=== PATIENT | female | born 1995 | race Caucasian/White ===

== ENCOUNTER 2017-06-15 16:07 | Inpatient (IN) | payer BC, OTHER ==
[~2017-06-15] VITALS: Ht 160 cm; Wt 49.9 kg
[2017-06-15] MEDS ORDERED: ONDANSETRON ODT 4 MG TAB.RAPDIS SL PRN (17:45)
[2017-06-15] MEDS ORDERED: IBUPROFEN 600 MG TABLET PO PRN (17:45)
[2017-06-15] MEDS ORDERED: MIRALAX 17 GM POWD.PACK PO PRN (17:45)
[2017-06-15] MEDS ORDERED: DICYCLOMINE HCL 20 MG TABLET PO PRN (17:45)
[2017-06-15] MEDS ORDERED: MAGNESIUM HYDROXIDE 30 ML LIQUID UDC PO PRN (17:45)
[2017-06-15] MEDS ORDERED: MAG HYDROX/AL HYDROX/SIMETH 30 ML LIQUID UDC PO PRN (17:45)
[2017-06-15] MEDS ORDERED: diphenhydrAMINE 50 MG CAPSULE PO PRN (17:45)
[2017-06-15] MEDS ORDERED: METHOCARBAMOL 750 MG TABLET PO PRN (17:45)
[2017-06-15] MEDS ORDERED: BUPRENORPHINE HCL 2 MG TAB.SUBL SL PRN (17:45)
[2017-06-15] MEDS ORDERED: ONDANSETRON 4 MG/2 ML VIAL IM PRN (17:45)
[2017-06-15] MEDS ORDERED: LORAZEPAM 2 MG/1 ML VIAL IM PRN (17:45)
[2017-06-15] MEDS ORDERED: LOPERAMIDE HCL 2 MG CAPSULE PO PRN ×2 (17:45)
[2017-06-15] MEDS ORDERED: ACETAMINOPHEN 325 MG TABLET PO PRN (17:45)
[2017-06-15] MEDS ORDERED: LORAZEPAM 1 MG TABLET PO PRN (17:45)
[2017-06-15] MEDS ORDERED: CLONIDINE HCL 0.1 MG TABLET PO PRN (17:45)
--- NOTE | 2017-06-15 17:54 | NUR ---
Contraband: 1 "bong" and 3 pipes with meth salts destroyed in biohazard waste. Witnessed by myself and Kamila Son RN.
--- NOTE | 2017-06-15 18:15 | NUR ---
PRE-ADMISSION Pt is a 21 yr old female, AA&Ox to person, place and situation. Pt is presenting herself to [facility] for heroin, ETOH, and Meth use. Pt states she also occasionally eats marijuana edibles. Pt is noted intoxicated and is unable to stay still. Pt is observed with enlarged pupils and speech is pressured. Pt is also having difficulty thinking clearly. Pt states she feels nauseous and has vomited x1 prior to intake. VS BP 135/99, P 148-152, R 24, O2 100%. Dr. Vincent was made aware of increase HR. Per Dr. Vincent, EKG to be ordered once on the unit. Will continue to monitor once pt arrives on the unit.
--- NOTE | 2017-06-15 18:20 | NUR ---
Contraband: 1 bag of meth salts was found in pt's belongs. Contraband was properly disposed and witnessed by Kamila SIMON
[2017-06-15 18:25] VITALS: BP 135/99
--- NOTE | 2017-06-15 18:30 | NUR ---
BODY CHECK Body check was complete. Skin is intact. Pt weighs 110lbs and is 5'3".
[2017-06-15 18:38] LABS: BASOPHILS # (AUTO) 0.1 K/uL (0.0-8.0); BASOPHILS % (AUTO) 0.7 % (0.0-2.0); EOSINOPHILS # (AUTO) 0.1 K/uL (0.0-0.7); EOSINOPHILS % (AUTO) 0.5 % (0.0-7.0); HEMATOCRIT 48.2 % (31.2-41.9); HEMOGLOBIN 16.3 g/dL (10.9-14.3); LYMPHOCYTES # (AUTO) 3.5 K/uL (20.0-40.0); MEAN CORPUSCULAR HEMOGLOBIN 29.8 uug (24.7-32.8); MEAN CORPUSCULAR HGB CONC 34 g/dL (32.3-35.6); MEAN CORPUSCULAR VOLUME 87.8 fL (75.5-95.3); MONOCYTES # (AUTO) 0.5 K/uL (2.0-10.0); MONOCYTES % (AUTO) 4.5 % (0.0-11.0); NEUTROPHILS # (AUTO) 6.9 K/uL (1.8-8.9); NEUTROPHILS % (AUTO) 62.3 % (38.5-71.5); PLATELET COUNT (AUTO) 327 K/uL (179-408); RED BLOOD CELL COUNT(AUTO) 5.49 MIL/uL (3.63-4.92)
[2017-06-15 18:50] LABS: BILIRUBIN,TOTAL 0.6 mg/dL (0.2-1.0); CREATININE 0.9 mg/dL (0.6-1.3); MAGNESIUM 2.4 mg/dL (1.8-2.4); POTASSIUM 3.5 mmol/L (3.5-5.1)
[2017-06-15 18:59] LABS: THYROID STIMULATING HORMONE 0.567 mIU/mL (0.358-3.740)
[2017-06-15] MEDS ORDERED: LORAZEPAM 1 MG TABLET PO ONE (19:45)
[2017-06-15 20:00] VITALS: BP 141/91
--- NOTE | 2017-06-15 20:24 | NUR ---
ONE TIME ATIVAN ADMINISTRATION DR. GILL MADE AN ORDER TO GIVEN ONE TIME ATIVAN AND AWARE OF PATIENT STILL UNABLE TO PROVIDE UA AND TO GIVE SCHEDULED MEDICATION
--- NOTE | 2017-06-15 21:30 | NUR ---
ADMISSION NOTE PATIENT CAME IN THE UNIT AT 1825. PATIENT IS A 21 YEAR OLD FEMALE WHO PRESENTS TO [facility] FOR SUPERVISED WITHDRAWAL FROM ETOH/OPIATE/CRYSTAL METH. PATIENT IS 5'3 AND 110 LBS. SKIN INTACT. NO SKIN BREAKDOWN. LUNGS CLEAR AND ABDOMEN SOFT AND NON-DISTENDED. BOWEL SOUNDS HYPOACTIVE ON LOWER QUADRANT . LAST BOWEL MOVEMENT YESTERDAY. NO ABDOMINAL PAIN. PATIENT REPORTS PMH OF MAJOR DEPRESSION, ANXIETY, BIPOLAR D/O, BORDERLINE PERSONALITY D/O AND SUICIDE ATTEMPT (APRIL 2016). NO SEIZURE HISTORY. DENIES SI AND HI. REQUESTED TO BE FULL CODE AND ON REGULAR DIET. PATIENT SMOKES 1 PACK DAILY. PATIENT IS ALLERGIC TO RESPERIDONE. HER PCP IS DR. PAULETTE ALEXANDER. 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 SHE STATES SHE IS HERE BECAUSE "I HAVE TO GET SOBER". " I CANNOT DO IT ON MY OWN ". PATIENT'S DRUG OF CHOICE ARE: 1.ETOH (VODKA)- STARTED DRINKING AT AGE 11. SHE DRINKS 1 BOTTLE DAILY FOR 6 MONTHS. LAST DRINK WAS 3 BOTTLES OF (24 OZ EACH) PRIOR TO ADMISSION. 2.HEROIN (SMOKE)-STARTED USING 4 MONTHS AGO . SHE SMOKES 1-3 GRAMS DAILY FOR 4 MONTHS. LAST USE WAS 0.2 GRAMS PRIOR TO ADMISSION 3.CRYSTAL METH (SMOKE/SNORT)- STARTED USING AT AGE 17. SHE TAKES $20 WORTH DAILY FOR 8 MONTHS. LAST USE WAS 1/2 GRAM PRIOR TO ADMISSION 4.MARIJUANA (ORALLY)- SHE STARTED USING AT AGE 13. SHE EATS (EDIBLE ) 240 MG OCCASIONALLY FOR 6 MONTHS. LAST USE WAS 240 MG TSH PRIOR TO ADMISSION. PATIENT'S LONGEST PERIOD OF SOBRIETY WAS 6-7 MONTHS ON APRIL 23 AND SHE RELAPSED 2016. PATIENT STATES SHE RELAPSED DUE TO HER DEPRESSION. PATIENT MODERATELY INTOXICATED. PATIENT PRESENTED WITH ANXIETY 8/10, PUPILS FULLY DILATED, FIDGETY, BILATERAL HAND TREMORS, FLUSHED FACE, SWEATING, MYALGIA, RESTLESSNESS, IRRITABILITY AND AGITATION. COWS 24 AND CIWA 20. PATIENT UNABLE TO PROVIDE UA AT THIS TIME. PATIENT WAS SEEN BY DR. GILL AT INTAKE. PATIENT ORIENTED TO SURROUNDING AND HOW TO USE CALL LIGHT. UNIT AND SMOKING POLICIES PROVIDED. Q4 HOURS VS. PATIENT DID NOT BROUGHT HOME MEDICATION BUT VERBALIZES TAKING SEROQUEL, LITHIUM AND GABAPENTIN WHICH SHE'S NOT TAKING FOR A LONG TIME. SAFETY MEASURES IN PLACE. CALL LIGHT IN REACH. WILL CONTINUE TO MONITOR
[2017-06-15] MEDS: GABAPENTIN 300 MG CAPSULE PO SCH (21:33)
--- NOTE | 2017-06-15 21:33 | NUR ---
PRN ZOFRAN AND ROBAXIN ADMINISTRATION PATIENT C/O NAUSEA BUT NO EMESIS AND MUSCLE ACHES . WILL MONITOR FOR EFFECTIVENESS
[2017-06-16] VITALS (7 sets, daily range): BP systolic 95–158; BP diastolic 56–95
[2017-06-16] MEDS: LORAZEPAM 1 MG TABLET PO PRN ×4 (00:39→19:44)
--- NOTE | 2017-06-16 00:39 | NUR ---
PRN ATIVAN ADMINISTRATION PATIENT MODERATELY ANXIOUS, PACING, FIDGETY, TREMULOUS, RESTLESS AND AGITATED. CIWA 15. WILL MONITOR FOR EFFECTIVENESS
--- NOTE | 2017-06-16 01:39 | NUR ---
PRN ATIVAN RE-ASSESSMENT PATIENT STILL ANXIOUS, FIDGETY AND RESTLESS. RELAXATION TECHNIQUE PROVIDED. CIWA 11.
--- NOTE | 2017-06-16 02:56 | NUR ---
PRN ATIVAN ADMINISTRATION PATIENT MODERATELY ANXIOUS, PACING, FIDGETY, TREMULOUS, RESTLESS AND AGITATED AND UNABLE TO SLEEP. CIWA 14. WILL MONITOR FOR EFFECTIVENESS
--- NOTE | 2017-06-16 03:56 | NUR ---
PRN ATIVAN RE-ASSESSMENT PATIENT STILL ANXIOUS, FIDGETY, RESTLESS , TREMULOUS AND NOTED WITH AUDITORY AND VISUAL MILD SENSITIVITY. CIWA 12 . WILL CONTINUE TO MONITOR
[2017-06-16 04:14] LABS: *URINE HCG, QUAL NEGATIVE (NEGATIVE)
[2017-06-16 04:22] LABS: *AMPHETAMINE, URINE POSITIVE (NEGATIVE); *BARBITURATE, URINE NEGATIVE (NEGATIVE); *CANNABINOID, URINE POSITIVE (NEGATIVE); *COCCAINE, URINE NEGATIVE (NEGATIVE); *OPIATE, URINE POSITIVE (NEGATIVE); *PHENCYCLIDINE SCREEN,URINE NEGATIVE (NEGATIVE)
[2017-06-16] MEDS ORDERED: GABA800T PO (05:37)
[2017-06-16] MEDS ORDERED: QUET200T3 PO (05:37)
[2017-06-16] MEDS ORDERED: LITH600C PO (05:37)
--- NOTE | 2017-06-16 06:04 | NUR ---
PRN ATIVAN ADMINISTRATION PATIENT NOTED WITH AUDITORY AND VISUAL HALLUCINATION. PATIENT WAS ANXIOUS AND RESTLESS. CIWA 17. PATIENT ON 1:1 FOR SAFETY . WILL MONITOR FOR EFFECTIVENESS.
--- NOTE | 2017-06-16 07:04 | NUR ---
END OF SHIFT NOTE/ATIVAN RE-ASSESSMENT ATIVAN WAS GIVEN AND CIWA 15 AFTER RE-ASSESSMENT. PATIENT DID NOT SLEEP DURING SHIFT. FLUID INTAKE OF 1,000 ML. VOIDED X 1 . NO BM. MONITORED PATIENT THROUGHOUT SHIFT. PATIENT WAS ON PUT 1:1 FOR FOR SAFETY DUE TO HAVING AUDITORY AND VISUAL HALLUCINATION DURING SHIFT. PATIENT WAS MODERATELY ANXIOUS, FIDGETY, RESTLESS , AGITATED AND IRRITABLE. PATIENT WAS GIVEN PRN ZOFRAN AND ROBAXIN. PATIENT WAS GIVEN PRN ATIVAN 2 MG X 4. LAST COWS 13 AND CIWA 15. SAFETY MEASURES IN PLACE. CALL LIGHT IN REACH. WILL CONTINUE TO MONITOR. CONTINUE ON 1:1 .
--- NOTE | 2017-06-16 07:45 | NUR ---
Start of shift note; Received report from night nurse. Patient is a 21 year old female admitted on 06/15/17 for ETOH/Heroin/Methamphetamine withdrawals. Patient appears anxious, restless, agitated, complaining of muscle aches, hallucinations reported per night nurse, slurred speech noted, frequent leg shifting noted , unable to sit still. Patient is awake , oriented to name. Patient is under 1:1 supervision for safety. Will notify psychiatrist regarding hallucinations and patient's current condition. All safety measures secured. Will continue to monitor patient.
[2017-06-16] MEDS ORDERED: OLANZAPINE 10 MG VIAL IM ONE ×3 (08:15→22:00)
--- NOTE | 2017-06-16 08:30 | NUR ---
Psychiatrist order; Psychiatrist was notified regarding patient's hallucinations and psychosis episodes. MD ordered Zyprexa 5mg IM one time order for psychosis. Medication administered on patient's right deltoid area. Patient is very anxious and restless unable to sit still. Patient's current vitals signs are as follows BP 159/86, HR 98, SPO2 95% on room air with respirations of 18. Will closely monitor patient. Patient remains on 1:1 supervision for safety.
--- NOTE | 2017-06-16 08:45 | NUR ---
Endorsement; Detailed report given to covering nurse. Patient is currently awake, oriented to name. Patient is having hallucinations and psychosis, Zyprexa 5mg IM given one time per psychiatrist order. Patient remains on 1:1 supervision for safety. Endorsed to covering nurse.
--- NOTE | 2017-06-16 08:46 | NUR ---
RECEIVED CARE Patient endorsement report received from primary nurse. All patient information discussed. Patient cont on 1:1 for hallucination and psychosis. Will cont to monitor closely. Safety measures in place.
[2017-06-16] MEDS ORDERED: HYDROXYZINE PAMOATE 25 MG CAPSULE PO PRN (09:00)
[2017-06-16] MEDS ORDERED: TUBERCULIN,PURIF.PROT.DERIV. 5 TU/0.1 ML TEST ID ONE (09:00)
[2017-06-16] MEDS: GABAPENTIN 300 MG CAPSULE PO SCH ×2 (10:26→20:35)
[2017-06-16] MEDS: BUPRENORPHINE HCL 2 MG TAB.SUBL SL SCH ×3 (10:27→20:35)
[2017-06-16] MEDS: LITHIUM CARBONATE 300 MG CAPSULE PO SCH ×2 (12:12→17:00)
[2017-06-16] MEDS: QUETIAPINE FUMARATE 25 MG TABLET PO PRN ×2 (12:12→21:10)
--- NOTE | 2017-06-16 12:12 | NUR ---
PRN SEROQUEL Patient was having visual and auditory hallucination and psychosis. PRN Seroquel 50mg PO given as ordered. will cont to monitor and reassess.
[2017-06-16] MEDS ORDERED: HYDROXYZINE PAMOATE 25 MG CAPSULE PO ONE (12:30)
[2017-06-16] MEDS ORDERED: PROPRANOLOL HCL 20 MG TABLET PO ONE (12:30)
--- NOTE | 2017-06-16 12:45 | NUR ---
ONE TIME ORDER Patient's blood pressure noted 141/95, HR-121, and patient c/o of anxiety, agitation. MD notified and new one time order received to give Propranolol 20mg PO, Vistaril 25mg PO. Medication given as ordered.
--- NOTE | 2017-06-16 13:12 | NUR ---
SEROQUEL REASSESSMENT Patient noted sleeping in her room Seroquel was effective. Patient cont on 1:1 for safety.
--- NOTE | 2017-06-16 15:00 | NUR ---
SUBUTEX 4MG NON-ADMINISTERED Pt was unable to follow directions and take medication. Pt is experiencing active visual, auditory hallucinations. MD notified.
--- NOTE | 2017-06-16 15:10 | NUR ---
One Time Zyprexa Pt has not slept yet. She is confused and disoriented with incoherent sentences. Pt startles easily and grabs for items in the air. She attempts to get out of the bed, requests her keys, and states "I need to go move my car". B/P 140/90 and HR 90. She is observed to be twitching and unable to fall asleep. Pt has not slept since she was admitted. Contacted Psychiatrist with orders received for [place].
--- NOTE | 2017-06-16 16:00 | NUR ---
CIWA and COWS was deferred at 1600 patient was sleeping, breathing normal no SOB noted.
--- NOTE | 2017-06-16 19:11 | NUR ---
END OF SHIFT NOTE Gave report to night nurse, patient admitted for ETOH, Heroin, Crystal meth withdrawal and patient cont on 5 days Subutex taper tolerating well. During shift patient received one time order of Zyprexa 5mg IM and one time Zyprexa 10mg IM, one time Vistaril 25mg PO and one time Propranolol 20mg PO for psychosis noted to be effective. Subutex 4mg SL and lithium was held. Patient was given PRN Seroquel. Patient noted resting breathing normal in her room. Patient cont on 1:1 for safety. Vital signs WNL. All safety measures in place. Patient endorsed to night nurse in stable condition.
--- NOTE | 2017-06-16 19:30 | NUR ---
START OF SHIFT NOTE RECEIVED REPORT FROM DAY SHIFT NURSE. PATIENT IS A 21 YEAR OLD FEMALE ADMITTED FOR ETOH/OPIATE/CRYSTAL METH WITHDRAWAL. PATIENT IS ON SUBUTEX TAPER. CONTINUE ON 1:1 FOR SAFETY . PATIENT HAD AN EPISODE OF AUDITORY/VISUAL HALLUCINATION AND PSYCHOSIS EPISODES DURING THE DAY. PATIENT WAS GIVEN PRN ZYPREXA X 2. SEROQUEL , PROPRANOLOL FOR HR 121 AND VISTARIL . SUBUTEX WAS HELD DUE TO PATIENT UNABLE TO FOLLOW INSTRUCTION IN TAKING THE MEDICATION. RECEIVED PATIENT IN THE ROOM WITH FEMALE ORAL AND MAXILLOFACIAL PATHOLOGIST. PATIENT PRESENTED WITH ANXIETY , RESTLESSNESS, NOTED WITH AUDITORY/VISUAL HALLUCINATIONS AND PSYCHOSIS EPISODES , HYPERVERBAL, FIDGETY , IRRITABILITY AND AGITATION. VS BP- 145/88 P-69 T-98.1 R-18 sPO2 AT 100% IN RA. REALITY ORIENTATION PROVIDED. SAFETY MEASURES IN PLACE. CALL LIGHT IN REACH. WILL CONTINUE TO MONITOR
--- NOTE | 2017-06-16 19:44 | NUR ---
PRN ATIVAN ADMINISTRATION PATIENT NOTED WITH ANXIETY , RESTLESSNESS, NOTED WITH AUDITORY/VISUAL HALLUCINATIONS AND PSYCHOSIS EPISODES , HYPERVERBAL, FIDGETY , UNABLE TO SIT STILL , IRRITABILITY AND AGITATION. VS BP- 145/88 P-69 T-98.1 R-18 sPO2 AT 100% IN RA
[2017-06-16] MEDS: QUETIAPINE FUMARATE 200 MG TABLET PO SCH (20:35)
[2017-06-16] MEDS: HYDROXYZINE PAMOATE 25 MG CAPSULE PO PRN (21:09)
--- NOTE | 2017-06-16 21:09 | NUR ---
PRN SEROQUEL AND VISTARIL ADMINISTRATION PATIENT ANXIOUS, PACING AROUND THE ROOM, RESTLESS, HAVING AUDITORY AND VISUAL HALLUCINATIONS, FIDGETY AND NOTED GETTING IN AND OUT OF BED
--- NOTE | 2017-06-16 22:09 | NUR ---
SH[place] SEROQUEL AND VISTARIL ADMINISTRATION PATIENT STILL SEVERELY ANXIOUS, IRRITATED, AGITATED AND RESTLESS. SEROQUEL AND VISTARIL INEFFECTIVE . WILL CONTINUE TO MONITOR Addendum: 06/17/17 at 0606 by VIPIN AMIN LVN ERROR: RE-ASSESSMENT
--- NOTE | 2017-06-16 22:13 | NUR ---
PRN ZYPREXA IM ADMINISTRATION PATIENT WITH SEVERE ANXIETY, NOTED RESTLESS, IRRITABLE, UNABLE TO STILL , AGITATED , HAVING AUDITORY AND VISUAL HALLUCINATIONS AND PSYCHOSIS EPISODES " PATIENT STATES THAT THE DOOR IS MOVING AND THERE'S WATER FALLING. PATIENT NOTED REMOVING PILLOWS AND BLANKETS FROM THE BED AND PUTTING IT EVERYWHERE. PATIENT ALSO NOTED CRYING AND YELLING. Addendum: 06/17/17 at 0602 by VIPIN AMIN LVN ERROR: ONE TIME ZYPREXA IM GIVEN NOT PRN Addendum: 06/17/17 at 0619 by VIPIN AMIN LVN VS BP-116/89 P-120 T-98.0 R-19. SpO2 AT 99% IN RA
--- NOTE | 2017-06-16 22:43 | NUR ---
ONE TIME ZYPREXA IM RE-ASSESSMENT CIWA DEFERRED. PATIENT ASLEEP AT THIS TIME. ZYPREXA EFFECTIVE. RESPIRATION EVEN AND UNLABORED. SpO2 AT 96 % IN RA 79
--- NOTE | 2017-06-17 | NUR ---
COWS AND CIWA DEFERRED UNABLE TO ASSESS VS, PATIENT ACUTELY PSYCHOTIC. PATIENT MOVING HER ARMS AWAY. SpO2 AND PULSE MEASURED BY PULSE OXIMETER. RESPIRATION EVEN AND UNLABORED. SpO2 96% IN RA AND 61
--- NOTE | 2017-06-17 04:00 | NUR ---
COWS AND CIWA DEFERRED UNABLE TO ASSESS VS, PATIENT ACUTELY PSYCHOTIC. PATIENT MOVING HER ARMS AWAY. SpO2 AND PULSE MEASURED BY PULSE OXIMETER. PATIENT WITH EYES CLOSED. RESPIRATION EVEN AND UNLABORED. SpO2 96% IN RA AND 60
--- NOTE | 2017-06-17 07:06 | NUR ---
END OF SHIFT NOTE PATIENT SLEPT 7 HOURS. FLUID INTAKE OF 355 ML. VOIDED X 2 NO BM. MONITORED PATIENT THROUGHOUT SHIFT. PATIENT IS ON 1:1 FOR SAFETY. PATIENT PRESENTED WITH ANXIETY, RESTLESSNESS, NOTED WITH AUDITORY/VISUAL HALLUCINATIONS AND PSYCHOSIS EPISODES , HYPERVERBAL, FIDGETY , UNABLE TO SIT STILL , IRRITABILITY AND AGITATION DURING SHIFT. REALITY ORIENTATION PROVIDED. PRN ATIVAN GIVEN AT 1943, INEFFECTIVE. PRN SEROQUEL AND VISTARIL GIVEN AT 2108 , INEFFECTIVE. AT 2212, ONE TIME ZYPREXA IM GIVEN , EFFECTIVE. CONTINUOS REALITY ORIENTATION PROVIDED. SAFETY MEASURES IN PLACE. CALL LIGHT IN REACH. WILL CONTINUE TO MONITOR. LAST COWS 13 AND CI.
--- NOTE | 2017-06-17 07:30 | NUR ---
START OF SHIFT PATIENT IS A 21 YR OLD FEMALE ADMITTED TO [facility] ON 06/15/17 FOR A MEDICALLY SUPERVISED WITHDRAWAL FROM ALCOHOL. OPIATES ( HEROIN ) AND METH. PATIENT IS AWAKE IN ROOM AT THIS TIME REQUESTING TO TAKE A SHOWER, PATIENT IS WITH A 1:1 FOR SAFETY MEASURES. PATIENT APPEARS ALERT WITH STEADY GAIT BUT GETS OVERWHELMED WHEN ASKED SIMPLE QUESTIONS. PRN MEDS GIVEN ON PM SHIFT : ATIVAN 2MG PO, SEROQUEL PO, VISTARIL PO AND ZYPREXA 10MG IM. PATIENT SLEPT FOR 7 HOURS AND LAST COWS 13 AND CIWA 19 @ 10PM. WILL CONTINUE TO FOLLOW MD PLAN OF CARE. Addendum: 06/17/17 at 0745 by JOANNA LOZANO RN SHE IS ON A 5 DAY SUBUTEX TAPER WITH PRN ATIVAN STARTED ON 06/16/17
[2017-06-17 08:00] VITALS: BP 131/71
[2017-06-17 08:07] LABS: HEPATITIS B SURFACE AG Negative (Negative)
[2017-06-17] MEDS: LITHIUM CARBONATE 300 MG CAPSULE PO SCH ×3 (08:20→17:14)
[2017-06-17] MEDS: GABAPENTIN 300 MG CAPSULE PO SCH ×2 (08:20→14:17)
[2017-06-17] MEDS: QUETIAPINE FUMARATE 25 MG TABLET PO PRN ×2 (08:20→14:17)
--- NOTE | 2017-06-17 08:20 | NUR ---
PRN SEROQUEL 50MG PO SEROQUEL GIVEN FOR C/O INABILITY TO SLEEP WILL REASSESS
[2017-06-17] MEDS ORDERED: BUPRENORPHINE HCL 2 MG TAB.SUBL SL SCH (09:00)
--- NOTE | 2017-06-17 09:20 | NUR ---
PRN REASSESS PATIENT IS RESTING IN BED WITH EYES CLOSED, WILL CONTINUE TO MONITOR
[2017-06-17] MEDS ORDERED: LORAZEPAM 1 MG TABLET PO ONE (11:00)
[2017-06-17 13:00] VITALS: BP 131/80
[2017-06-17] MEDS: LORAZEPAM 1 MG TABLET PO PRN ×4 (14:17→22:27)
[2017-06-17] MEDS: BUPRENORPHINE HCL 2 MG TAB.SUBL SL SCH ×2 (14:18→21:59)
--- NOTE | 2017-06-17 14:20 | NUR ---
PRN ATIVAN/SEROQUEL ATIVAN 2MG PO GIVEN FOR CIWA 14 AND C/O HIGH ANXIETY, HR 121 SEROQUEL 50MG PO GIVEN FOR R/O INABILITY TO REST/SLEEP WILL CONTINUE TO MONITOR
--- NOTE | 2017-06-17 15:20 | NUR ---
PRN REASSESS PATIENT IS LESS ANXIOUS CIWA NOW 10 / HR 90 PT STILL UNABLE TO FALL ASLEEP BUT IS ABLE TO REST IN BED WITH EYES CLOSED. WILL CONTINUE TO MONITOR
--- NOTE | 2017-06-17 16:34 | NUR ---
ERROR ON eMAR 2MG ATIVAN PO GIVEN @ 1420 NOT 1MG
[2017-06-17 17:00] VITALS: BP 139/81
[2017-06-17] MEDS: HYDROXYZINE PAMOATE 25 MG CAPSULE PO PRN (17:14)
--- NOTE | 2017-06-17 17:15 | NUR ---
PRN VISTARIL VISTARIL 50MG PO GIVEN FOR C/O INCREASED ANXIETY, HR 115 WILL REASSESS
--- NOTE | 2017-06-17 18:15 | NUR ---
PRN REASSESS PATIENT IS STILL ANXIOUS AFTER VISTARIL 50MG PO HR IS 140, CIWA 15, WILL GIVE ATIVAN 2 MG PO
--- NOTE | 2017-06-17 18:25 | NUR ---
PRN ATIVAN 2MG PO ATIVAN 2MG PO GIVEN FOR CIWA 15 AND HR 140, PT STATES SHE IS STILL HAVING HALLUCINATIONS BUT DOESN'T WANT TO TELL US WHEN SHE DOES, EXPLAINED TO PT THAT IN ORDER TO TREAT AND MEDICATE HER PROPERLY SHE NEEDS TO LET US KNOW, SHE STATES UNDERSTANDING. WILL REASSESS
--- NOTE | 2017-06-17 18:51 | NUR ---
END OF SHIFT : PATIENT IS A 21 YR OLD FEMALE ADMITTED TO [facility] ON 06/15/17 FOR A MEDICALLY SUPERVISED DETOX FROM ALCOHOL, HEROIN, CRYSTAL METH AND MARIJUANA. SHE IS ON A 5 DAY SUBUTEX TAPER WITH PRN ATIVAN STARTED ON 06/16/17 AND THIS IS DAY 2. PATIENT HAS BEEN EXPERIENCING VISUAL AND AUDITORY HALLUCINATION SINCE ADMISSION , TODAY THEY HAVE BEEN LESS SEVERE BUT SHE STATES SHE IS STILL HAVING THEM BUT JUST DIDN'T WANT TO TELL US, SHE HAS A HARD TIME SLEEPING. PRN MEDS GIVEN ON THIS SHIFT : SEROQUEL 50MG PO X2, ATIVAN 2MG PO X2 AND VISTARIL 50MG PO. PATIENT IS BIPOLAR AND PSYCHIATRIST HAS STARTED HER ON LITHIUM 300MG PO TID ( FOR BIPOLAR DISORDER) WHICH SHE WAS NON COMPLIANT BEFORE COMING TO DETOX. PATIENT TOOK A SHOWER THIS AM BUT REMAINS ON A 1:1 FOR SAFETY . PATIENT GETS EASILY OVERWHELMED AND HAS LOOSE THOUGHTS AND FLIGHT OF IDEAS, HER MOOD IS LABILE, SHE IS HIGHLY ANXIOUS , RESTLESS AND TACHYCARDIC. PATIENT HAD A FLUID INTAKE OF 1100 ML, 1VOID AND 0 BM. LAST COWS 10@ 1700 AND CIWA 15 @ 1830. CONTINUE TO FOLLOW MD PLAN OF CARE. ENDORSED TO NIGHT NURSE.
--- NOTE | 2017-06-17 19:20 | NUR ---
START OF SHIFT Pt is a 21 y/o female admitted on 06/15/17 for ETOH, opiate and meth withdrawal. Pt is on a 5 day Subutex taper, tolerating well. Pt had PRN Seroquel 50 mg x 2, Ativan 2 mg x 2 and Vistaril and last COWS 10 and CIWA 15 during day shift. Ativan 2 mg to be reassessed at 1925. Pt has hx of AV hallucinations. Pt is on a 1:1 for safety. Upon assessment pt laying in bed with eyes closed. Upon awakening pt A&O x 4 and presents with anxiety, difficulty concentrating, poor memory recall, difficulty thinking clearly, auditory and visual disturbances, agitation, depressed affect, disheveled appearance, unkempt room, slumped posture, fatigue, sense of panic, occasionally tearful and is isolative. Medications due. Safety measures in place. Call light within reach. Will continue to monitor.
--- NOTE | 2017-06-17 19:25 | NUR ---
PRN ATIVAN 2 MG REASSESSMENT Pt laying in bed with eyes closed, medication noted effective. Respirations even and unlabored. Safety measures in place. Call light within reach. Will continue to monitor.
[2017-06-17 20:00] VITALS: BP 112/66
[2017-06-17] MEDS ORDERED: GABAPENTIN 300 MG CAPSULE PO SCH (21:00)
[2017-06-17] MEDS: CLONIDINE HCL 0.1 MG TABLET PO SCH (22:00)
[2017-06-17] MEDS: QUETIAPINE FUMARATE 200 MG TABLET PO SCH (22:00)
--- NOTE | 2017-06-17 22:27 | NUR ---
PRN ATIVAN 2 MG ADMINISTRATION CIWA 15, pt presents with auditory and visual disturbances and anxiety. Safety measures in place. 1:1 sitter at bedside. Will continue to monitor.
--- NOTE | 2017-06-17 23:27 | NUR ---
PRN ATIVAN 2 MG REASSESSMENT Pt laying in bed with eyes closed, medication noted effective. Respirations even and unlabored. Safety measures in place. 1:1 sitter at bedside. Will continue to monitor.
--- NOTE | 2017-06-18 | NUR ---
COWS/CIWA DEFERRED AND VITALS REFUSED Pt laying in bed with eyes closed, COWS/CIWA deferred, to be assessed when pt is awake per orders. Vitals refused. Respirations even and unlabored. Safety measures in place. Call light within reach. Will continue to monitor.
--- NOTE | 2017-06-18 06:59 | NUR ---
START OF SHIFT Pt is a 21 y/o female admitted on 06/15/17 for ETOH, opiate and meth withdrawal. Pt is on a 5 day Subutex taper, tolerating well. Pt is on a 1:1 for safety. Pt presented with anxiety, difficulty concentrating, poor memory recall, difficulty thinking clearly, auditory and visual disturbances, agitation, depressed affect, disheveled appearance, unkempt room, slumped posture, fatigue, sense of panic, occasionally tearful and is isolative. Scheduled medications and PRN Ativan 2 mg administered, effective in S/S of withdrawal as verbalized by pt. Last COWS 8 and CIWA 15. Pt slept 9 hours. Intake 800 ml, void x 1, stool x 0. Safety measures in place. 1:1 sitter at bedside. Pts needs have been met. Endorsed to day shift nurse. Addendum: 06/18/17 at 0700 by DIANE BRODY RN END OF SHIFT, NOT START OF SHIFT
--- NOTE | 2017-06-18 08:00 | NUR ---
Start of Shift Note Pt is a 21 y/o female admitted on 06/15/17 for ETOH, opiate and meth withdrawal. Pt is on a 5 day Subutex taper, and has orders for PRN Ativan. Pt is on a 1:1 for safety. Pt. has been noted experiencing visual and auditory hallucinations in previous shifts. Received pt. in bed with eyes closed. Respirations even and unlabored. Pt. arousable to name and touch, but goes back to sleep as soon as awoken. Last COWS 8 and CIWA 15. Pt slept 9 hours. Safety measures in place. 1:1 sitter at bedside. Bed position low and bedside rails padded. Pt. needs met, and will continue to monitor behavior for safety.
[2017-06-18 08:55] VITALS: BP 104/66
[2017-06-18] MEDS: LITHIUM CARBONATE 300 MG CAPSULE PO SCH ×3 (09:54→16:11)
[2017-06-18] MEDS: CLONIDINE HCL 0.1 MG TABLET PO SCH (09:54)
[2017-06-18] MEDS: GABAPENTIN 300 MG CAPSULE PO SCH ×3 (09:54→21:12)
[2017-06-18] MEDS: BUPRENORPHINE HCL 2 MG TAB.SUBL SL SCH ×3 (09:54→21:12)
--- NOTE | 2017-06-18 10:00 | NUR ---
Pt. awake at this time. Upon approach pt. pleasant with a flat affect. Pt. appears restless, anxious, with poor short term memory. At this time pt. compliant with medication regiment. Pt. education provided on plan of care and pt. ask questions and verbalized understanding. Pt. concerned with work and school and her concerns were made known to case management. Pt. continues to be on a 1:1 for safety. Will continue to monitor pt.s behavior for safety.
[2017-06-18 12:12] VITALS: BP 118/70
[2017-06-18] MEDS: HYDROXYZINE PAMOATE 25 MG CAPSULE PO PRN (12:24)
[2017-06-18] MEDS: LORAZEPAM 1 MG TABLET PO PRN (12:24)
--- NOTE | 2017-06-18 12:24 | NUR ---
PRN Ativan 1mg PO, Vistaril 50mg PO administered for CIWA 12, mb inability to stay still, irritability, agitation, and anxiety respectively. Call light within reach.
--- NOTE | 2017-06-18 13:24 | NUR ---
Reassess PRN Ativan 1mg, Vistaril 50mg, client is able to sit and maintain focus. She stated, "I feel irritable and just anxious." CIRO 7. Call light within reach.
[2017-06-18] MEDS: LORAZEPAM 1 MG TABLET PO SCH ×2 (15:53→21:12)
--- NOTE | 2017-06-18 15:58 | NUR ---
Pt. swallowed her dose of Subutex 2mg taper at 1558. MD called and a one time order of 2mg Subutex was given.
[2017-06-18] MEDS: BUPRENORPHINE HCL 2 MG TAB.SUBL SL ONE ×2 (15:59→16:11)
[2017-06-18 16:00] VITALS: BP 120/72
--- NOTE | 2017-06-18 19:12 | NUR ---
END of Shift Note Pt is a 21 y/o female admitted on 06/15/17 for ETOH, opiate and meth withdrawal. Pt is on a 5 day Subutex taper, and a modified 3 day ativan taper. Pt. has orders for PRN Ativan aswell. Pt is on a 1:1 for safety. Pt. has been noted experiencing visual and auditory hallucinations in previous shifts. Pt. is pleasant but guarded upon approach with a flat affect. Pt. denied visual hallucinations throughout shift but stated I never really stop hearing voices. Pt. compliant with treatment plan and medication regiment but can be irritable at times with mood swings. Respirations even and unlabored. Last COWS 14 and CIWA 14 at 1600. Safety measures in place. 1:1 sitter at bedside. Bed position low and bedside rails padded. Pt. needs met, and will endorse pt.s care to oncoming shift.
--- NOTE | 2017-06-18 19:15 | NUR ---
Start of Shift Note: Patient is a 21 y.o female admitted on 06/15/17 for medically supervised withdrawal from ETOH & Heroin. Patient is asleep in bed but easily arousable. Patient alert & oriented to name, place & situation. Pt has a flat affect, has anxious and depressed mood. She presented with complaints of sweating, chills, stuffy nose, dilated pupils, clammy/moist skin, restlessness & fine tremors. Patient is on a 5-day Subutex taper and started today on a 3-day Ativan taper and tolerating well. Last COWS 14 CIWA 14. She received PRN Ativan and Vistaril during day shift and was effective per report. She continues to be on a 1:1 sitter for safety. Vitals signs are closely monitored. Pt remained compliant with medications. Encourage pt to increase fluid intake for hydration. Educated patient of current plan of care for the night and medication regimen. Safety precaution in place. Bed locked in lowest position. Both side rails up. Call light within pt's reach. Will continue to monitor patient.
[2017-06-18 20:00] VITALS: BP_SYST 119; BP_DIAS 65; BP_DIAS 72
[2017-06-18] MEDS: QUETIAPINE FUMARATE 200 MG TABLET PO SCH (21:11)
[2017-06-18] MEDS: PROPRANOLOL HCL 20 MG TABLET PO SCH (21:11)
[2017-06-19] VITALS: BP 109/61
[2017-06-19 04:00] VITALS: BP 102/57
--- NOTE | 2017-06-19 07:22 | NUR ---
End of Shift Note: Patient remains stable at this time. Patient remains alert & oriented to name, place & situation. Continued on 1:1 for safety precaution. No episodes of confusion was noted. Continues her Subutex taper and tolerating well. Pt continues to present complaints of sweating, chills, stuffy nose, dilated pupils, clammy/moist skin, restlessness, light auditory disturbance & fine tremors. Last COWS 10 CIWA 12. No PRN medications received during my shift. Patient slept most of the night. Continue to closely monitor vitals signs and noted WNL. Patient remained compliant with medication regimen. Encourage pt to increase fluid intake. Fluid intake: 355ml, Voided 2x with no bowel movement. Pt slept for 9 hours. All needs attended & met. Safety measures in place. Will endorse pt to day shift nurse.
[2017-06-19] MEDS: HYDROXYZINE PAMOATE 25 MG CAPSULE PO PRN (07:34)
--- NOTE | 2017-06-19 07:34 | NUR ---
START OF SHIFT & PRN Vistaril 50mg PO Rcvd endorse form ongoing nurse, client is in room, a/o X4. Client appears disheveled, dark circles under eyes, dry lips. She presents with anxious mood, flat affect, tremors, inability to stay still, and difficult concentrating. Client reports high levels of anxiety, irritability, sweating, cold/chills, restless legs, decrease appetite, nausea, abdominal spasms, and fatigue. Administered PRN Vistaril 25mg for anxiety. Client continues on 1:1 sitter for safety. Encourage client to increase PO fluid to facilitate detox. Encourage client to attend group therapy to learn skills to maintain sober. Last COWS / CIRO 12 @ 1999. Client slept 9 hrs. Seizure precaution rendered. Call light within reach
[2017-06-19] MEDS: BUPRENORPHINE HCL 2 MG TAB.SUBL SL SCH ×2 (08:26→20:58)
[2017-06-19] MEDS: LORAZEPAM 1 MG TABLET PO SCH ×2 (08:26→20:57)
[2017-06-19] MEDS: LITHIUM CARBONATE 300 MG CAPSULE PO SCH ×3 (08:26→16:44)
[2017-06-19] MEDS: GABAPENTIN 300 MG CAPSULE PO SCH ×3 (08:26→20:57)
[2017-06-19] MEDS: PROPRANOLOL HCL 20 MG TABLET PO SCH ×3 (08:28→21:00)
[2017-06-19 08:30] VITALS: BP 130/84
--- NOTE | 2017-06-19 08:34 | NUR ---
Reassess PRN Vistaril 25mg, client continues to present with anxious mood. Scheduled Ativan 1mg administered.
[2017-06-19 12:00] VITALS: BP 108/70
[2017-06-19 16:55] VITALS: BP 120/76
--- NOTE | 2017-06-19 19:12 | NUR ---
END OF SHIFT Endorse client to incoming nurse, client is in room, a/o X4. Client continues to present with anxious mood, flat affect, tremors, difficult concentrating, restless legs, decrease appetite, and fatigue. PRN Vistaril 25mg Po administered and noted per protocol. Client continues on 1:1 sitter for safety due to auditory hallucinations. Client was not compliant with group therapy. 880ml PO fluid intake, void x 3. Client consumes 50-75% of meals. Last COWS 12/ CIWA 12 @ 1600. Seizure precaution rendered. Call light within reach
--- NOTE | 2017-06-19 19:15 | NUR ---
Start of Shift Note: Patient received in bed asleep but easily arousable. Patient remains alert & oriented to name, place & situation. Pt appears disheveled and unkempt. Room has scattered open bottles and and food on the table. She has a flat affect, has anxious/irritable, & depressed mood. She presented with complaints of chills, stuffy nose, dilated pupils, clammy/moist skin, restlessness & fine tremors. Patient continues on her Subutex and Ativan taper and tolerating well. Last COWS 12 CIWA 12. She received PRN Vistaril during day shift and was effective per report. She continues to be on a 1:1 sitter for safety. Vitals signs are closely monitored. Encourage pt to maintain proper hygiene. Encourage pt to increase fluid intake for hydration. Educated patient of current plan of care for the night and medication regimen. Safety precaution in place. Bed locked in lowest position. Both side rails up. Call light within pt's reach. Will continue to monitor patient.
[2017-06-19 20:00] VITALS: BP 111/70
[2017-06-19] MEDS: QUETIAPINE FUMARATE 200 MG TABLET PO SCH (20:57)
--- NOTE | 2017-06-20 07:11 | NUR ---
End of Shift Note: Patient remains stable at this time. Patient remains alert & oriented to name, place & situation. Continued on 1:1 for safety precaution. Continues her Subutex taper and tolerating well. She presented with complaints of chills, stuffy nose, dilated pupils, clammy/moist skin, restlessness & fine tremors. Last COWS 10 CIWA 10. No PRN medications received during my shift. Patient slept throughout the night. Continue to closely monitor vitals signs and noted WNL. Patient remained compliant with medication regimen. Encourage pt to increase fluid intake. Fluid intake: 250 ml, Voided 1x with no bowel movement. Pt slept for 10 hours. All needs attended & met. Safety measures in place. Will endorse pt to day shift nurse.
--- NOTE | 2017-06-20 07:31 | NUR ---
Start of shift Patient 21 y/o female admitted for medically supervised withdrawal of ETOH, Heroin, crystal meth and marijuana. Patient alert & oriented to name, place & situation. Denies c/o auditory hallucinations this morning. Presents with depressed mood, flat affect. Denies c/o N/V/D. Continued on 1:1 for safety precaution. Pt on Subutex and ativan taper and tolerating well. At 1999 last COWS 10 CIWA 10. No PRN medications received during PM shift. Patient slept 10 hours. Patient remained compliant with medication regimen. Encourage pt to attend group therapy to learn/develop coping skills to prevent relapse. Pt allergic to risperidone, FULL CODE. Bed in lowest/locked position, side rails up X2, call light within reach. Will continue to monitor for withdrawal symptoms.
[2017-06-20 08:00] VITALS: BP 124/85
[2017-06-20] MEDS: LITHIUM CARBONATE 300 MG CAPSULE PO SCH ×3 (08:45→16:57)
[2017-06-20] MEDS: GABAPENTIN 300 MG CAPSULE PO SCH ×3 (08:45→20:55)
[2017-06-20] MEDS: PROPRANOLOL HCL 20 MG TABLET PO SCH ×2 (08:46→20:56)
[2017-06-20] MEDS ORDERED: BUPRENORPHINE HCL 2 MG TAB.SUBL SL SCH (09:00)
[2017-06-20] MEDS ORDERED: LORAZEPAM 1 MG TABLET PO SCH (09:00)
[2017-06-20 12:00] VITALS: BP 128/82
[2017-06-20] MEDS ORDERED: DICY20TA28 PO (15:26)
[2017-06-20] MEDS ORDERED: METH-406 PO (15:26)
[2017-06-20] MEDS ORDERED: GABA-534 PO ×2 (15:26)
[2017-06-20] MEDS ORDERED: PROP20TA19 PO (15:26)
[2017-06-20] MEDS ORDERED: IBUP-1955 PO (15:26)
[2017-06-20] MEDS ORDERED: HYDR-3895 PO (15:26)
[2017-06-20 16:00] VITALS: BP 126/89
--- NOTE | 2017-06-20 18:33 | NUR ---
End of shift Patient 21 y/o female admitted for medically supervised withdrawal of ETOH, Heroin, crystal meth and marijuana. Patient alert & oriented to name, place & situation. Denies c/o auditory hallucinations today. Presents with depressed mood, flat affect. Denies c/o N/V/D. Pt completed Subutex and ativan taper. Pt for discharge tomorrow. At 1600 last COWS 9, CIWA 9. No PRN medications received during this shift. Patient remained compliant with medication regimen. Encouraged pt to attend group therapy to learn/develop coping skills to prevent relapse. Pt went to all group therapies today. Pt allergic to risperidone, FULL CODE. Adequate PO fluids 1436 ml, voids X 4, no BM. Fall and seizure precautions observed. Bed in lowest/locked position, side rails up X2, call light within reach. Will continue to monitor for withdrawal symptoms. Endorsed to PM shift.
[2017-06-20 20:00] VITALS: BP 105/76
[2017-06-20] MEDS: QUETIAPINE FUMARATE 200 MG TABLET PO SCH (20:56)
[2017-06-20] MEDS: HYDROXYZINE PAMOATE 25 MG CAPSULE PO PRN (20:56)
--- NOTE | 2017-06-20 20:56 | NUR ---
PRN Vistaril Patient complained of anxiety. Non-pharmacological intervention provided but not effective. PRN Vistaril administered as ordered. Will monitor for effectiveness of medication.
--- NOTE | 2017-06-20 21:56 | NUR ---
PRN Reassessment Patient verbalized decreased in anxiety after medication administration. Pt noted more calm & decreased in restlessness noted. Safety measures in place. Will continue to monitor patient.
[2017-06-21] VITALS: BP 101/56
--- NOTE | 2017-06-21 07:05 | NUR ---
End of Shift Note: Patient remains stable at this time. Patient remains alert & oriented to name, place & situation. Pt completed her Subutex taper and she is scheduled to be discharge today. Last COWS 6 CIWA 8. Pt was given PRN Vistaril during my shift and was effective. Continue to closely monitor vitals signs and noted WNL. Patient remained compliant with medication regimen. Encourage pt to increase fluid intake. Fluid intake: 1120 ml, Voided 3x with no bowel movement. Pt slept for 9 hours. All needs attended & met. Safety measures in place. Will endorse pt to day shift nurse.
--- NOTE | 2017-06-21 07:30 | NUR ---
START OF SHIFT NOTE Received report from night nurse, 21 year old female admitted for ETOH/Opioid/Meth withdrawal and completed her Subutex and Ativan taper tolerated well. Per endorsement patient received PRN Vistaril for anxiety effective per night nurse, last CIWA-8, COWS-6, slept for 9 hours. Received patient alert awake oriented x4. Patient set for discharge today at 0900. patient is motivated for her treatment. All safety measures in place. Will cont to monitor.
[2017-06-21] MEDS: LITHIUM CARBONATE 300 MG CAPSULE PO SCH (08:05)
[2017-06-21] MEDS: GABAPENTIN 300 MG CAPSULE PO SCH (08:05)
[2017-06-21] MEDS: PROPRANOLOL HCL 20 MG TABLET PO SCH (08:06)
[2017-06-21 08:07] VITALS: BP 125/84
--- NOTE | 2017-06-21 08:45 | NUR ---
DISCHARGE NOTE Patient is alert awake oriented x4 in stable condition. Breathing normal no SOB noted. Skin intact warm and dry to touch. All discharge paper work completed signed and dated. Patient left with all of her belongings, prescriptions. Vital signs WNL. Patient denies any SI/HI. Patient has been discharge from [facility] on 06/21/17 at 0845. has been notified.
[2017-07-17] MEDS ORDERED: QUET200T3 PO (01:22)
[2017-07-17] MEDS ORDERED: LITH600C PO (01:22)
[2017-07-20] MEDS ORDERED: FAMO20TA8 PO (10:21)
[2017-07-20] MEDS ORDERED: DICY20TA28 PO (10:21)
[2017-07-20] MEDS ORDERED: CLON0.1T14 PO (10:21)
[2017-07-20] MEDS ORDERED: METH-406 PO (10:21)
[2017-07-20] MEDS ORDERED: IBUP-1955 PO (10:21)
== END 2017-06-21 08:45 | disposition home or self-care (01) | DRG 895 ==
LOC: SRC 17:07
PROVIDERS: ADMIT Internal Medicine; ATTEND Internal Medicine
PROC: HZ2ZZZZ Detoxification Services for Substance Abuse Treatment (ICD-10-PCS; principal; 2017-06-15)
PROC: HZ31ZZZ Individual Counseling for Substance Abuse Treatment, Behavioral (ICD-10-PCS; 2017-06-18)
PROC: HZ41ZZZ Group Counseling for Substance Abuse Treatment, Behavioral (ICD-10-PCS; 2017-06-19)
DX: F10.230 Alcohol dependence with withdrawal, uncomplicated (principal); F15.221 Other stimulant dependence with intoxication delirium; I15.9 Secondary hypertension, unspecified; F11.23 Opioid dependence with withdrawal; F12.10 Cannabis abuse, uncomplicated; F41.9 Anxiety disorder, unspecified; Y90.2 Blood alcohol level of 40-59 mg/100 ml; F13.129 Sedative, hypnotic or anxiolytic abuse with intoxication, unspecified; F17.210 Nicotine dependence, cigarettes, uncomplicated; Z91.5 Personal history of self-harm; Z83.3 Family history of diabetes mellitus; Z82.49 Family history of ischemic heart disease and other diseases of the circulatory system; Z81.8 Family history of other mental and behavioral disorders; Z79.899 Other long term (current) drug therapy
CPT/HCPCS: 36415; 70030-TC; 80307; 80324; 80349; 80361; 83735; 84443; 84703; 85025; 86580; 86592; 86705; 86803; 87340; 87806; 93005; A4663; G0480; J2358; J2405; Q0162; Q0163